=== PATIENT | female | born 1995 | race African-American/Black ===

== ENCOUNTER 2022-04-06 16:18 | Inpatient (IN) | payer OTHER ==
[~2022-04-06] VITALS: Ht 157.5 cm; Wt 63.2 kg
[2022-04-06] MEDS ORDERED: MAALOX 30 ML SUSP *UDC PO PRN (17:00)
[2022-04-06] MEDS ORDERED: MOM 30ML SUSPENSION UDC PO PRN (17:00)
[2022-04-06 17:43] VITALS: BP 136/68
[2022-04-06] MEDS: traZODone 50 MG TAB PO PRN (20:45)
[2022-04-07 06:40] VITALS: BP 103/73
[2022-04-07] MEDS ORDERED: INFLUENZA QUADRIVALENT PF VACCINE 0.5ML SYRINGE IM.IMMUN ONE (09:00)
[2022-04-07] MEDS: ACETAMINOPHEN TAB 650MG DOSE (2X325MG) PO PRN ×2 (13:26→21:37)
[2022-04-07 16:37] VITALS: BP 117/68
[2022-04-07] MEDS ORDERED: PALIPERIDONE 3 MG ER TAB (INVEGA) PO SCH (21:00)
[2022-04-07] MEDS: traZODone 50 MG TAB PO PRN (21:36)
[2022-04-08 06:54] VITALS: BP 109/62
[2022-04-08] MEDS: ACETAMINOPHEN TAB 650MG DOSE (2X325MG) PO PRN (09:07)
[2022-04-08] MEDS: SERTRALINE HCL 25 MG TABLET PO SCH (15:27)
[2022-04-08 16:38] VITALS: BP 115/64
[2022-04-08] MEDS: traZODone 50 MG TAB PO PRN (20:02)
[2022-04-08] MEDS: PALIPERIDONE 3 MG ER TAB (INVEGA) PO SCH (20:02)
[2022-04-09 07:01] VITALS: BP 127/58
[2022-04-09] MEDS: SERTRALINE HCL 25 MG TABLET PO SCH (09:34)
[2022-04-09] MEDS: PALIPERIDONE 3 MG ER TAB (INVEGA) PO SCH ×2 (09:34→20:20)
[2022-04-09 18:00] VITALS: BP 123/71
[2022-04-09] MEDS: ACETAMINOPHEN TAB 650MG DOSE (2X325MG) PO PRN (19:25)
[2022-04-09] MEDS ORDERED: LORazepam 1 MG TAB PO ONE (19:45)
[2022-04-09 19:48] VITALS: BP 143/88
[2022-04-09] MEDS: traZODone 50 MG TAB PO PRN (20:20)
[2022-04-10 06:29] VITALS: BP 114/56
[2022-04-10] MEDS: PALIPERIDONE 3 MG ER TAB (INVEGA) PO SCH ×2 (08:59→20:07)
[2022-04-10] MEDS: SERTRALINE HCL 25 MG TABLET PO SCH (09:00)
[2022-04-10 18:51] VITALS: BP 125/71
[2022-04-10] MEDS: traZODone 50 MG TAB PO PRN (20:07)
[2022-04-11 06:54] VITALS: BP 113/71
[2022-04-11] MEDS: PALIPERIDONE 3 MG ER TAB (INVEGA) PO SCH (08:29)
[2022-04-11] MEDS: SERTRALINE HCL 25 MG TABLET PO SCH (08:30)
[2022-04-11] MEDS ORDERED: PALI1TAB2 PO (12:38)
[2022-04-11] MEDS ORDERED: SERT25TA21 PO (12:38)
[2022-04-11] MEDS ORDERED: TRAZ-252 PO (12:38)
== END 2022-04-11 14:15 | disposition home or self-care (01) | DRG 882 ==
LOC: M PSY 17:33
PROVIDERS: ADMIT Student in an Organized Health Care Education/Training Program; ATTEND Student in an Organized Health Care Education/Training Program
DX: F43.10 Post-traumatic stress disorder, unspecified (principal); F32.3 Major depressive disorder, single episode, severe with psychotic features; R45.851 Suicidal ideations; F32.A Depression, unspecified; R56.9 Unspecified convulsions; Z91.410 Personal history of adult physical and sexual abuse; Z20.822 Contact with and (suspected) exposure to COVID-19; R07.89 Other chest pain

== ENCOUNTER → 2022-07-03 | Outpatient (REF) ==
[~2022-07-03] MED LIST: PALI1TAB2 PO; SERT25TA21 PO; TRAZ-252 PO
== END ==
LOC: M LAB 12:16
PROVIDERS: ATTEND Nurse Practitioner Family
DX: Z02.1 Encounter for pre-employment examination (principal)

== ENCOUNTER 2022-11-08 17:20 | Emergency (ER) | payer OTHER ==
[~2022-11-08] VITALS: Ht 152.4 cm; Wt 68.2 kg
[2022-11-08] MEDS ORDERED: PNV,1TAB3 (17:29)
[2022-11-08 19:12] LABS: BASO % 0.1 % (0.0-1.0); EOS # 0.1 10^3/uL (0.0-0.5); EOS % 0.8 % (0.0-3.0); HEMATOCRIT 38.6 % (36.0-47.0); HEMOGLOBIN 12.7 g/dl (12.0-15.5); LYMPH % 40.1 % (24.0-44.0); MEAN CORPUSCULAR HEMOGLOBIN 29.7 pg (27.0-33.0); MEAN CORPUSCULAR HGB CONC 32.9 g/dl (32.0-36.5); MEAN CORPUSCULAR VOLUME 90.4 fl (80.0-96.0); MONO # 0.7 10^3/uL (0.0-0.8); MONO % 9.9 % (2.0-8.0); NEUTROPHILS # 3.6 10^3/uL (1.5-8.5); NEUTROPHILS % 48.8 % (36.0-66.0); PLATELET COUNT, AUTOMATED 247 10^3/uL (150-450); RED BLOOD COUNT 4.27 10^6/uL (4.00-5.40); WHITE BLOOD COUNT 7.4 10^3/uL (4.0-10.0)
[2022-11-08 19:34] LABS: ALKALINE PHOSPHATASE 98 U/L (46-116); ALT/SGPT 36 U/L (7.0-40); AST/SGOT 43 U/L (<34); BILIRUBIN,TOTAL 0.3 MG/DL (0.3-1.2); BLOOD UREA NITROGEN 15 MG/DL (9-23); CALCIUM LEVEL 9.3 MG/DL (8.5-10.1); CARBON DIOXIDE LEVEL 28 MMOL/L (20-31); CHLORIDE LEVEL 105 MMOL/L (98-107); CREATININE FOR GFR 1.04 MG/DL (0.55-1.30); GLOMERULAR FILTRATION RATE > 60.0 (>60); GLUCOSE, FASTING 91 MG/DL (60-100); POTASSIUM SERUM 4.1 MMOL/L (3.5-5.1); SODIUM LEVEL 139 MMOL/L (136-145); TOTAL PROTEIN 7.2 G/DL (5.7-8.2)
[2022-11-08 19:35] LABS: HCG, SERUM QUALITATIVE NEGATIVE (NEGATIVE)
[2022-11-08 22:08] VITALS: BP 116/78
== END 2022-11-08 22:56 | disposition left against medical advice (07) ==
LOC: M ED 17:20
DX: R42 Dizziness and giddiness (principal); Z53.21 Procedure and treatment not carried out due to patient leaving prior to being seen by health care provider